=== PATIENT | male | born 1965 | race Caucasian/White ===

== ENCOUNTER 2017-11-28 18:07 | Emergency (ER) | payer OTHER ==
[~2017-11-28] VITALS: Ht 182.9 cm; Wt 115.7 kg
[~2017-11-28 18:07] MED LIST: (None)20 M1 PO; ACEDIPPM PO; ACET500 PO; ALBU90OI INH; ALBU90OI6; ALBU90OI61 INH; ALLO100 PO; AMIT10; AMIT10 PO; AMIT25; AMLO10/10 PO; AMLO5 PO; AMOX500 PO; ASPI325; ASPI325 PO; ASPI81CH PO; ATOR10; ATOR20 PO; ATOR40TA; ATOR40TA PO; AZIT250 PO; AZOR; AZOR PO; Abilify2 MG PO; Augmentin 875-1 EACH PO; Azithromycin250 MG; CARV25; CARV25 PO; CEPH500 PO; CHOL10002; CHOL10002 PO; CITA20; CITA20 PO; CLOP75 PO; CODGUAEL PO; COLC.6 PO; COREG; CRUTCH3 USE; CYCL10 PO; DIAZ5 PO; DOCU100 PO; DOXY100 PO; DULO60; DULO60 PO; ERGO400 PO; ESCI10; ESCI10 PO; ESOM20; FURO20; FURO20 PO; FURO40 PO; GABA100 PO; GABA300 PO; GABA600 PO; HYDACE10B PO; HYDACE5 PO; HYDCHL12.5; HYDMOR2 PO; HYDROCODONE 7.5/325; IBUP800; INDO25 PO; INDO50 PO; INSLI100I SC; ISOMON20 PO; ISOMON30 PO; ISOMON60ER PO; K-Dur20 MEQ PO; LANS30EC; LISHYD2012 PO; LISHYD2025; LISI20 PO; LORA1 PO; LOSA25; LOVA40; LOVA40 PO; Lasix20 MG PO; METAMUCIL660 GM PO; METCAR500 PO; METH10 PO; METH5 PO; METO25ER; METO50ER PO; Micro-K10 MEQ; NAC600 MG PO; NAPR220 PO; NAPR500 PO; NAPR550 PO; NEBI10; NEBI10 PO; NEBI5 PO; NITR.4SL PO; NITR.4SL SL; OLME20; OXYACE5T PO; OXYC30ER PO; OXYC5 PO; PANT40; PENVK500 PO; POTA10T PO; PRAV20 PO; PRAV40 PO; PRED20 PO; PROM25 PO; PROTONIX; Percocet 10-321 EACH PO; QVAR7.3 G1 INH; RAMI5; RANI150 PO; RANO500T PO; RXCYCL10 PO; RXHYDACE PO; RXHYDMOR2 PO; RXNAPNA550 PO; Ranexa1000 MG; SERT50; STOMUL PO; Zithromax250 MG PO; [UNRECOGNIZED DRUG - CODE] PO; [UNRECOGNIZED DRUG - REMARK]
[2017-11-28 19:14] LABS: BASOPHILS ABSOLUTE AUTO 0.04 K/mm3 (0.00-0.23); BASOPHILS PERCENT AUTO 0 % (0-2); EOSINOPHILS PERCENT AUTO 2 % (0-6); Hematocrit 39.8 % (37.0-53.0); Hemoglobin 12.8 g/dL (13.5-17.5); IMMATURE GRAN PERCENT AUTO 1 % (0-1); LYMPHOCYTES ABSOLUTE AUTO 2.21 K/mm3 (0.84-5.20); LYMPHOCYTES PERCENT AUTO 18 % (21-46); MONOCYTES ABSOLUTE AUTO 0.84 K/mm3 (0.16-1.47); MONOCYTES PERCENT AUTO 7 % (4-13); Mean Corpuscular HGB 30.2 pg (26.0-34.0); Mean Corpuscular HGB Conc 32.2 g/dL (31.5-36.5); Mean Corpuscular Volume 94 fL (80-100); Mean Platelet Volume 10.5 fL (9.1-12.4); NEUTROPHILS ABSOLUTE AUTO 8.79 K/mm3 (1.96-9.15); NEUTROPHILS PERCENT AUTO 72 % (41-73); Platelet Count 264 K/mm3 (150-400); RDW Coefficient Variation 15.7 % (11.7-14.2); RDW Standard Deviation 53.8 fL (35.1-46.3); Red Blood Cell Count 4.24 M/mm3 (4.30-5.90); White Blood Cell Count 12.28 K/mm3 (4.00-11.30)
[2017-11-28 19:24] LABS: Alanine Aminotransfer (ALT/SGP 14 U/L (12-78); Albumin, Blood 3.2 g/dL (3.4-5.0); Albumin/Globulin Ratio 0.9 (0.8-1.8); Alk Phos 81 U/L (50-136); Anion Gap 6 mmol/L (6-16); Aspartate Aminotrans (AST/SGOT 8 U/L (12-37); Bilirubin, Total 0.3 mg/dL (0.1-1.0); Blood Urea Nitrogen 20 mg/dL (8-24); Bun/Creatinine Ratio 16.1 (12.0-20.0); CO2, Blood 28 mmol/L (21-32); Calcium, Blood 8.9 mg/dL (8.5-10.1); Chloride, Blood 106 mmol/L (98-108); Creatinine, Blood 1.24 mg/dL (0.60-1.20); Globulin, Blood 3.5 g/dL (2.2-4.0); Glomerular Filtration Rate >60 (60-); Glucose, Blood 86 mg/dL (70-99); Potassium, Blood 4.4 mmol/L (3.5-5.5); Sodium, Blood 140 mmol/L (136-145); Total Protein, Blood 6.7 g/dL (6.4-8.2); Troponin I <0.015 ng/mL (0.000-0.040)
== END 2017-11-28 20:38 | disposition home or self-care (01) ==
LOC: ER 18:07
PROVIDERS: Emergency Medicine
DX: R07.9 Chest pain, unspecified (principal); Z88.8 Allergy status to other drugs, medicaments and biological substances; Z79.899 Other long term (current) drug therapy; Z79.82 Long term (current) use of aspirin; Z79.891 Long term (current) use of opiate analgesic; Z79.2 Long term (current) use of antibiotics; I10 Essential (primary) hypertension; I25.2 Old myocardial infarction
CPT/HCPCS: 36415; 71046; 71100; 80053; 84484; 85025; 93005; 93010; 99283

== ENCOUNTER 2020-11-08 18:04 | Emergency (ER) | payer OTHER ==
[~2020-11-08] VITALS: Ht 182.9 cm; Wt 112.9 kg
[~2020-11-08 18:04] MED LIST changes: +BUPR150ER PO; +CALCIUM CIT 311 EACH PO; +CLON.1 PO; +Isosorbide Mono30 MG PO; +METPRE4DP PO; +MULVITA PO; +OMEP20ER PO; +TAMS.4ER PO; +Vitamin D2000 UNIT PO
[2020-11-08 18:58] LABS: BASOPHILS ABSOLUTE AUTO 0.07 K/mm3 (0.00-0.23); BASOPHILS PERCENT AUTO 1 % (0-2); EOSINOPHILS ABSOLUTE AUTO 0.42 K/mm3 (0.00-0.68); EOSINOPHILS PERCENT AUTO 4 % (0-6); Hematocrit 48.2 % (37.0-53.0); Hemoglobin 15.8 g/dL (13.5-17.5); IMMATURE GRAN ABSOLUTE AUTO 0.04 K/mm3 (0.00-0.10); IMMATURE GRAN PERCENT AUTO 0 % (0-1); LYMPHOCYTES ABSOLUTE AUTO 2.64 K/mm3 (0.84-5.20); LYMPHOCYTES PERCENT AUTO 25 % (21-46); MONOCYTES ABSOLUTE AUTO 0.95 K/mm3 (0.16-1.47); MONOCYTES PERCENT AUTO 9 % (4-13); Mean Corpuscular HGB 29.6 pg (26.0-34.0); Mean Corpuscular HGB Conc 32.8 g/dL (31.5-36.5); Mean Corpuscular Volume 90 fL (80-100); Mean Platelet Volume 10.6 fL (9.1-12.4); NEUTROPHILS ABSOLUTE AUTO 6.63 K/mm3 (1.96-9.15); NEUTROPHILS PERCENT AUTO 62 % (41-73); Platelet Count 260 K/mm3 (150-400); RDW Coefficient Variation 15.2 % (11.7-14.2); RDW Standard Deviation 50.3 fL (35.1-46.3); Red Blood Cell Count 5.33 M/mm3 (4.30-5.90); White Blood Cell Count 10.75 K/mm3 (4.00-11.30)
[2020-11-08 19:12] LABS: Alanine Aminotransfer (ALT/SGP 29 U/L (12-78); Albumin, Blood 3.7 g/dL (3.4-5.0); Albumin/Globulin Ratio 1.1 (0.8-1.8); Alk Phos 89 U/L (50-136); Anion Gap 4 mmol/L (6-16); Aspartate Aminotrans (AST/SGOT 19 U/L (12-37); Bilirubin, Total 0.4 mg/dL (0.1-1.0); Blood Urea Nitrogen 14 mg/dL (8-24); Bun/Creatinine Ratio 11.5 (12.0-20.0); CO2, Blood 28 mmol/L (21-32); Calcium, Blood 8.9 mg/dL (8.5-10.1); Chloride, Blood 106 mmol/L (98-108); Creatinine, Blood 1.22 mg/dL (0.60-1.20); Globulin, Blood 3.3 g/dL (2.2-4.0); Glomerular Filtration Rate >60 (60-); Glucose, Blood 78 mg/dL (70-99); Sodium, Blood 138 mmol/L (136-145); Troponin I <0.015 ng/mL (0.000-0.040)
== END 2020-11-08 22:21 | disposition home or self-care (01) ==
LOC: ER 18:04
PROVIDERS: Emergency Medicine
DX: R07.9 Chest pain, unspecified (principal); R51.9 Headache, unspecified; I10 Essential (primary) hypertension; F17.210 Nicotine dependence, cigarettes, uncomplicated; Z79.899 Other long term (current) drug therapy; Z79.82 Long term (current) use of aspirin
CPT/HCPCS: 36415; 71045; 80053; 83735; 83880; 84484; 85025; 93005; 93010; 99285-25; A9270

== ENCOUNTER → 2021-04-06 | Outpatient (CLI) | payer OTHER | END | disposition home or self-care (01) | LOC: LAB SHORT 10:46 | DX: L57.0 Actinic keratosis (principal) | CPT/HCPCS: 88305 ==

== ENCOUNTER 2021-06-20 13:47 | Emergency (ER) | payer OTHER ==
[~2021-06-20] VITALS: Ht 182.9 cm; Wt 113.4 kg
[2021-06-20] MEDS ORDERED: TOBRADEX ST EYE5 M1 LEFTEYE (14:42)
== END 2021-06-20 15:03 | disposition home or self-care (01) ==
LOC: ER 13:47
DX: S05.02XA Injury of conjunctiva and corneal abrasion without foreign body, left eye, initial encounter (principal); I10 Essential (primary) hypertension; I25.2 Old myocardial infarction; M10.9 Gout, unspecified; Z23 Encounter for immunization; Z88.8 Allergy status to other drugs, medicaments and biological substances; Z79.899 Other long term (current) drug therapy; Z79.82 Long term (current) use of aspirin; Z95.5 Presence of coronary angioplasty implant and graft; Z87.891 Personal history of nicotine dependence; W45.8XXA Other foreign body or object entering through skin, initial encounter
CPT/HCPCS: 90471; 90714; 99282; A9270

== ENCOUNTER → 2021-08-30 | Outpatient (CLI) | payer OTHER ==
[~2021-08-30] MED LIST changes: +TOBRADEX ST EYE5 M1 LEFTEYE
[2021-08-30 13:48] LABS: BASOPHILS ABSOLUTE AUTO 0.04 K/mm3 (0.00-0.23); BASOPHILS PERCENT AUTO 1 % (0-2); EOSINOPHILS ABSOLUTE AUTO 0.41 K/mm3 (0.00-0.68); EOSINOPHILS PERCENT AUTO 6 % (0-6); Hematocrit 47.5 % (37.0-53.0); Hemoglobin 15.9 g/dL (13.5-17.5); IMMATURE GRAN ABSOLUTE AUTO 0.06 K/mm3 (0.00-0.10); IMMATURE GRAN PERCENT AUTO 1 % (0-1); LYMPHOCYTES ABSOLUTE AUTO 1.61 K/mm3 (0.84-5.20); LYMPHOCYTES PERCENT AUTO 22 % (21-46); MONOCYTES ABSOLUTE AUTO 0.77 K/mm3 (0.16-1.47); MONOCYTES PERCENT AUTO 11 % (4-13); Mean Corpuscular HGB 30.8 pg (26.0-34.0); Mean Corpuscular HGB Conc 33.5 g/dL (31.5-36.5); Mean Corpuscular Volume 92 fL (80-100); Mean Platelet Volume 9.6 fL (9.1-12.4); NEUTROPHILS ABSOLUTE AUTO 4.42 K/mm3 (1.96-9.15); NEUTROPHILS PERCENT AUTO 61 % (41-73); Platelet Count 234 K/mm3 (150-400); RDW Coefficient Variation 17.7 % (11.7-14.2); RDW Standard Deviation 58.3 fL (35.1-46.3); Red Blood Cell Count 5.16 M/mm3 (4.30-5.90); White Blood Cell Count 7.31 K/mm3 (4.00-11.30)
[2021-08-30 14:02] LABS: Alanine Aminotransfer (ALT/SGP 26 U/L (12-78); Albumin, Blood 3.6 g/dL (3.4-5.0); Albumin/Globulin Ratio 0.9 (0.8-1.8); Alk Phos 86 U/L (40-126); Anion Gap 10 mmol/L (6-16); Aspartate Aminotrans (AST/SGOT 14 U/L (12-37); Bilirubin, Total 0.4 mg/dL (0.1-1.0); Blood Urea Nitrogen 11 mg/dL (8-24); CO2, Blood 28 mmol/L (21-32); Calcium, Blood 9.3 mg/dL (8.5-10.1); Chloride, Blood 104 mmol/L (98-108); Creatinine, Blood 1.37 mg/dL (0.60-1.20); Globulin, Blood 3.8 g/dL (2.2-4.0); Glomerular Filtration Rate 54 (60-); Glucose, Blood 144 mg/dL (70-99); Potassium, Blood 4.5 mmol/L (3.5-5.5); Sodium, Blood 142 mmol/L (136-145); Total Protein, Blood 7.4 g/dL (6.4-8.2)
[2021-08-30 14:03] LABS: Troponin I <0.017 ng/mL (0.000-0.040)
== END | disposition home or self-care (01) ==
LOC: LAB SHORT 13:44
PROVIDERS: Family Medicine
DX: R42 Dizziness and giddiness (principal)
CPT/HCPCS: 80053; 84484; 85025; 85379

== ENCOUNTER 2022-06-07 22:44 | Inpatient (IN) | payer OTHER ==
[~2022-06-07] VITALS: Ht 182.9 cm; Wt 121.5 kg
[2022-06-07 23:37] LABS: BASOPHILS ABSOLUTE AUTO 0.05 K/mm3 (0.00-0.23); BASOPHILS PERCENT AUTO 0 % (0-2); EOSINOPHILS ABSOLUTE AUTO 0.03 K/mm3 (0.00-0.68); EOSINOPHILS PERCENT AUTO 0 % (0-6); Hematocrit 45.7 % (37.0-53.0); Hemoglobin 15.1 g/dL (13.5-17.5); IMMATURE GRAN ABSOLUTE AUTO 0.16 K/mm3 (0.00-0.10); IMMATURE GRAN PERCENT AUTO 1 % (0-1); LYMPHOCYTES ABSOLUTE AUTO 1.21 K/mm3 (0.84-5.20); LYMPHOCYTES PERCENT AUTO 6 % (21-46); MONOCYTES ABSOLUTE AUTO 2.27 K/mm3 (0.16-1.47); MONOCYTES PERCENT AUTO 11 % (4-13); Mean Corpuscular HGB 29.5 pg (26.0-34.0); Mean Corpuscular Volume 89 fL (80-100); Mean Platelet Volume 10.3 fL (9.1-12.4); NEUTROPHILS ABSOLUTE AUTO 17.75 K/mm3 (1.96-9.15); NEUTROPHILS PERCENT AUTO 83 % (41-73); Platelet Count 249 K/mm3 (150-400); RDW Coefficient Variation 16.1 % (11.7-14.2); RDW Standard Deviation 52.7 fL (35.1-46.3); Red Blood Cell Count 5.12 M/mm3 (4.30-5.90); White Blood Cell Count 21.47 K/mm3 (4.00-11.30)
[2022-06-07 23:54] LABS: Albumin, Blood 3.2 g/dL (3.4-5.0); Albumin/Globulin Ratio 0.9 (0.8-1.8); Bilirubin, Total 0.9 mg/dL (0.1-1.0); Bun/Creatinine Ratio 12.3 (12.0-20.0); Calcium, Blood 8.3 mg/dL (8.5-10.1); Creatinine, Blood 1.79 mg/dL (0.60-1.20); Globulin, Blood 3.7 g/dL (2.2-4.0); Potassium, Blood 4.4 mmol/L (3.5-5.5); Total Protein, Blood 6.9 g/dL (6.4-8.2)
[2022-06-08 01:19] LABS: Source, Urine Clean Catch
[2022-06-08 01:22] LABS: Blood, Urine 5+ (Neg); Glucose Qualitative, Urine Neg (Neg); Ketones, Urine 1+ (Neg); Leukocyte Esterase, Urine 3+ (Neg); Nitrite, Urine Pos (Neg); Protein, Urine 2+ (Neg); Urobilinogen, Urine 1+ (Normal)
[2022-06-08 01:25] LABS: Appearance, Urine Hazy (Clear); Bilirubin, Urine 1+ (Neg); Color, Urine Brown (P-Yellow)
[2022-06-08 01:28] LABS: Bacteria Mod /hpf; Red Blood Cells, Urine 0-2 /hpf (0-2); Squamous Epithelial Cells Rare /hpf (Few); White Blood Cells, Urine 25-50 /hpf (0-5)
[2022-06-08 01:42] LABS: Influenza A, PCR NEGATIVE (NEGATIVE); Influenza B, PCR NEGATIVE (NEGATIVE); Resp Syncytial Virus, PCR NEGATIVE (NEGATIVE); SARS-Cov-2 (COVID-19) PCR, MMC NEGATIVE (NEGATIVE)
[2022-06-08 06:22] LABS: BASOPHILS ABSOLUTE AUTO 0.05 K/mm3 (0.00-0.23); BASOPHILS PERCENT AUTO 0 % (0-2); EOSINOPHILS ABSOLUTE AUTO 0.06 K/mm3 (0.00-0.68); EOSINOPHILS PERCENT AUTO 0 % (0-6); Hemoglobin 14.4 g/dL (13.5-17.5); IMMATURE GRAN ABSOLUTE AUTO 0.14 K/mm3 (0.00-0.10); IMMATURE GRAN PERCENT AUTO 1 % (0-1); LYMPHOCYTES ABSOLUTE AUTO 1.25 K/mm3 (0.84-5.20); LYMPHOCYTES PERCENT AUTO 6 % (21-46); MONOCYTES ABSOLUTE AUTO 2.14 K/mm3 (0.16-1.47); MONOCYTES PERCENT AUTO 10 % (4-13); Mean Corpuscular HGB 29.8 pg (26.0-34.0); Mean Corpuscular HGB Conc 33.5 g/dL (31.5-36.5); Mean Corpuscular Volume 89 fL (80-100); Mean Platelet Volume 10.2 fL (9.1-12.4); NEUTROPHILS ABSOLUTE AUTO 17.27 K/mm3 (1.96-9.15); NEUTROPHILS PERCENT AUTO 83 % (41-73); Platelet Count 246 K/mm3 (150-400); RDW Coefficient Variation 16.2 % (11.7-14.2); RDW Standard Deviation 53.1 fL (35.1-46.3); Red Blood Cell Count 4.83 M/mm3 (4.30-5.90); White Blood Cell Count 20.91 K/mm3 (4.00-11.30)
[2022-06-08 06:56] LABS: Albumin, Blood 2.8 g/dL (3.4-5.0); Albumin/Globulin Ratio 0.8 (0.8-1.8); Bilirubin, Total 0.6 mg/dL (0.1-1.0); Bun/Creatinine Ratio 14.4 (12.0-20.0); Creatinine, Blood 1.53 mg/dL (0.60-1.20); Globulin, Blood 3.7 g/dL (2.2-4.0); Potassium, Blood 4.1 mmol/L (3.5-5.5); Total Protein, Blood 6.5 g/dL (6.4-8.2)
--- NOTE | 2022-06-08 17:41 | NUR ---
SHIFT SUMMARY: PATIENT ARRIVE TO ROOM AROUND 1220 VIA W/C. ORIENT TO ROOM AND CALL SYSTEM. PATIENT A&OX4. PLEASANT AND COOPERATIVE WITH CARE. CALLS APPROPRIATELY AND MAKE KNOWN NEEDS. ADMISSION AND RX RECONCILLATION WAS DONE. PATIENT HAD EPISODE OF CP AROUND 1430'S THAT LAST ABOUT A MINUTE AND A HALF, VITALS TAKEN BP OF 124/78, HR 78 BPM, RR 18, O2 97% ON 1L VIA NC AND TEMP OF 99.[address] WILKERSON REGARDING THIS MATTER. PATIENT HAS BEEN CONTINENT AND USES URINAL INDEPENDENTLY AT BEDSIDE. PATIENT REPORT OF CHRONIC MID/LOWER BACK AND RIGHT PAIN. RECIEVED SCHEDULED METHADONE AND OXYCODONE PER EMAR. PATIENT REPORT SIGN OF RELIEF THE PAIN WAS 9/10 WENT DOWN TO 3/10. PATIENT TOLERATE PO INTAKE. BED IN LOCK, LOWEST POSITION AND CALL LIGHT IN REACH. WILL GIVE REPORT TO ONCOMING JESSY RN.
[2022-06-09 05:03] LABS: BASOPHILS ABSOLUTE AUTO 0.05 K/mm3 (0.00-0.23); BASOPHILS PERCENT AUTO 0 % (0-2); EOSINOPHILS ABSOLUTE AUTO 0.28 K/mm3 (0.00-0.68); EOSINOPHILS PERCENT AUTO 2 % (0-6); Hematocrit 43.5 % (37.0-53.0); Hemoglobin 14.1 g/dL (13.5-17.5); IMMATURE GRAN ABSOLUTE AUTO 0.12 K/mm3 (0.00-0.10); IMMATURE GRAN PERCENT AUTO 1 % (0-1); LYMPHOCYTES ABSOLUTE AUTO 1.27 K/mm3 (0.84-5.20); LYMPHOCYTES PERCENT AUTO 9 % (21-46); MONOCYTES ABSOLUTE AUTO 1.48 K/mm3 (0.16-1.47); MONOCYTES PERCENT AUTO 11 % (4-13); Mean Corpuscular HGB 29.3 pg (26.0-34.0); Mean Corpuscular HGB Conc 32.4 g/dL (31.5-36.5); Mean Corpuscular Volume 90 fL (80-100); Mean Platelet Volume 10.6 fL (9.1-12.4); NEUTROPHILS ABSOLUTE AUTO 10.94 K/mm3 (1.96-9.15); NEUTROPHILS PERCENT AUTO 77 % (41-73); Platelet Count 232 K/mm3 (150-400); RDW Coefficient Variation 15.9 % (11.7-14.2); RDW Standard Deviation 52.2 fL (35.1-46.3); Red Blood Cell Count 4.81 M/mm3 (4.30-5.90); White Blood Cell Count 14.14 K/mm3 (4.00-11.30)
--- NOTE | 2022-06-09 05:18 | NUR ---
SHIFT SUMMARY NO ACUTE CHANGES TO PT CONDITION. PT STARTED ON ANTIBIOTICS YESTERDAY. PT HAS HAD NO COMPLAINTS. CALL LIGHT IS WITHIN PT REACH.
[2022-06-09 05:49] LABS: Albumin, Blood 2.7 g/dL (3.4-5.0); Anion Gap 6 mmol/L (6-16); Blood Urea Nitrogen 14 mg/dL (8-24); Bun/Creatinine Ratio 12.1 (12.0-20.0); CO2, Blood 27 mmol/L (21-32); Calcium, Blood 8.6 mg/dL (8.5-10.1); Chloride, Blood 105 mmol/L (98-108); Creatinine, Blood 1.16 mg/dL (0.60-1.20); Glomerular Filtration Rate 74 (60-); Glucose, Blood 119 mg/dL (70-99); Magnesium, Blood 1.9 mg/dL (1.6-2.4); Phosphorus, Blood 2.6 mg/dL (2.5-4.9); Sodium, Blood 138 mmol/L (136-145)
[2022-06-09] MEDS ORDERED: CEFD300 PO (11:48)
--- NOTE | 2022-06-09 12:24 | NUR ---
DC HOME RECEIVED DC ORDERS. PIV DC'D WITH CATH TIP INTACT, NO REDNESS OR SWELLING NOTED AT SITE. DC INSTRUCTIONS GIVEN TO PT WITH GOOD VERBALIZATION BY PT. NEW MEDICATION FAXED TO [facility] PER PT PREFERENCE.
--- NOTE | 2022-06-09 14:58 | NUR ---
LATE ENTRY/DC HOME 1245: PT HOME VIA W/C TO PRIVATE VEHICLE WITH SPOUSE TO DRIVE HIM HOME.
== END 2022-06-09 12:51 | disposition home or self-care (01) | DRG 690 ==
LOC: ER 22:44 → ERHOLD 06-08 04:04 → MEDS 06-08 12:11
PROVIDERS: Emergency Medicine; Family Medicine; Student in an Organized Health Care Education/Training Program; ADMIT Family Medicine
DX: N39.0 Urinary tract infection, site not specified (principal); F11.20 Opioid dependence, uncomplicated; N17.9 Acute kidney failure, unspecified; M10.9 Gout, unspecified; I71.4 Abdominal aortic aneurysm, without rupture; F17.210 Nicotine dependence, cigarettes, uncomplicated; I12.9 Hypertensive chronic kidney disease with stage 1 through stage 4 chronic kidney disease, or unspecified chronic kidney disease; N18.9 Chronic kidney disease, unspecified; G62.9 Polyneuropathy, unspecified; Z20.822 Contact with and (suspected) exposure to COVID-19; I73.9 Peripheral vascular disease, unspecified; J44.9 Chronic obstructive pulmonary disease, unspecified; G47.33 Obstructive sleep apnea (adult) (pediatric); I25.2 Old myocardial infarction; Z95.5 Presence of coronary angioplasty implant and graft; Z98.890 Other specified postprocedural states; Z99.89 Dependence on other enabling machines and devices; Z88.8 Allergy status to other drugs, medicaments and biological substances; Z79.51 Long term (current) use of inhaled steroids; Z79.899 Other long term (current) drug therapy
CPT/HCPCS: 0241U; 36415; 70450; 71045; 74176; 80053; 80069; 81001; 83605; 83735; 85025; 87040; 87077; 87086; 87186; 94640; 94664; 94762; 96374; 96375; 96376; 99285-25; A9270; J0696; J1644; J3010; J7030; J7120

== ENCOUNTER 2023-11-29 06:50 | Day surgery (SDC) | payer OTHER ==
[~2023-11-29] VITALS: Ht 182.9 cm; Wt 107.0 kg
[2023-11-29] VITALS (8 sets, daily range): BP systolic 146–165; BP diastolic 96–102
[~2023-11-29 06:50] MED LIST changes: +ABILIFY MYCITE2 M2 PO; +CALCIUM CARBON500 M1 PO; +CEFD300 PO; +Cyclobenzaprine5 MG PO; +FLUT1DIS8 INH; +METF500C PO; +SILVADENE20 G8 TOP
[2023-11-29] MEDS ORDERED: Verapamil HCL 2.5 MG/ML 2ML Injection ONE (07:25)
[2023-11-29] MEDS ORDERED: NS 2,000 ML IV ONE (07:25)
[2023-11-29] MEDS ORDERED: Heparin Sodium 1000 Units/ML 10ML MDV ONE ×2 (07:25→08:37)
[2023-11-29 07:40] LABS: BASOPHILS ABSOLUTE AUTO 0.07 K/mm3 (0.00-0.23); BASOPHILS PERCENT AUTO 1 % (0-2); EOSINOPHILS ABSOLUTE AUTO 0.38 K/mm3 (0.00-0.68); EOSINOPHILS PERCENT AUTO 4 % (0-6); Hematocrit 51.2 % (37.0-53.0); Hemoglobin 17.2 g/dL (13.5-17.5); IMMATURE GRAN ABSOLUTE AUTO 0.08 K/mm3 (0.00-0.10); IMMATURE GRAN PERCENT AUTO 1 % (0-1); LYMPHOCYTES ABSOLUTE AUTO 1.38 K/mm3 (0.84-5.20); LYMPHOCYTES PERCENT AUTO 14 % (21-46); MONOCYTES ABSOLUTE AUTO 0.81 K/mm3 (0.16-1.47); MONOCYTES PERCENT AUTO 8 % (4-13); Mean Corpuscular HGB 31.2 pg (26.0-34.0); Mean Corpuscular HGB Conc 33.6 g/dL (31.5-36.5); Mean Corpuscular Volume 93 fL (80-100); Mean Platelet Volume 9.5 fL (9.1-12.4); NEUTROPHILS PERCENT AUTO 73 % (41-73); Platelet Count 278 K/mm3 (150-400); RDW Coefficient Variation 16.8 % (11.7-14.2); Red Blood Cell Count 5.51 M/mm3 (4.30-5.90); White Blood Cell Count 10.02 K/mm3 (4.00-11.30)
[2023-11-29 07:52] LABS: International Normalized Ratio 1.04; Prothrombin Time Results 10.9 Sec (9.7-11.5)
[2023-11-29 08:00] LABS: Bun/Creatinine Ratio 14.4 (12.0-20.0); Calcium, Blood 9.2 mg/dL (8.5-10.1); Creatinine, Blood 1.32 mg/dL (0.60-1.20); Potassium, Blood 4.3 mmol/L (3.5-5.5)
[2023-11-29] MEDS ORDERED: FentaNYL Citrate 50 MCG/ML 2 ML Injection ONE (08:18)
[2023-11-29] MEDS ORDERED: NS 1,000 ML IV ONE (08:19)
[2023-11-29] MEDS ORDERED: Midazolam HCl 1MG / ML 2ML Vial ONE (08:19)
--- NOTE | 2023-11-29 09:18 | NUR ---
PT BACK TO RECOVERY ROOM, FAMILY TO BEDSIDE. PT GIVEN WATER AND COFFEE. PT ALERT AND ORIENTED. VSS. PRELUDE BAND TO R RADIAL WRIST. NO BLEEDING OR HEMATOMA NOTED.
--- NOTE | 2023-11-29 10:00 | NUR ---
Prelude band fully deflated. no bleeding or hematoma noted.
--- NOTE | 2023-11-29 11:08 | NUR ---
PT AND S/O VERBALIZE D/C INSTRUCTIONS. PT DRESSED, NO BLEEDING OR HEMATOMA NOTED TO R WRIST. BAND REMOVED AND DOT CLOTH PLACED. IV D/C CATHETER INTACT. PT WHEELED OUT TO VEHICLE.
== END 2023-11-29 12:10 | disposition home or self-care (01) ==
LOC: MHTC 06:50
PROVIDERS: Internal Medicine Interventional Cardiology
DX: I25.118 Atherosclerotic heart disease of native coronary artery with other forms of angina pectoris (principal); G47.33 Obstructive sleep apnea (adult) (pediatric); J44.9 Chronic obstructive pulmonary disease, unspecified; E78.5 Hyperlipidemia, unspecified; I10 Essential (primary) hypertension; Z88.8 Allergy status to other drugs, medicaments and biological substances; Z79.84 Long term (current) use of oral hypoglycemic drugs; Z79.899 Other long term (current) drug therapy; Z99.89 Dependence on other enabling machines and devices
CPT/HCPCS: 76937; 80048; 85025; 85610; 93458; 99152; C1769; C1887; C1894; J1644; J2250; J3010; J7030; Q9967

== ENCOUNTER 2024-09-18 12:50 | Day surgery (SDC) | payer OTHER ==
[~2024-09-18] VITALS: Ht 182.9 cm; Wt 106.7 kg
[~2024-09-18 12:50] MED LIST changes: +Lactated Ringer's 1,000 ML IV ONE
[2024-09-18] MEDS ORDERED: DEPO-TESTO200 MG/1 M (13:28)
[2024-09-18] MEDS ORDERED: OZEMPIC0.25 MG/02 (13:28)
[2024-09-18] MEDS ORDERED: TRAZ150T57 (13:29)
[2024-09-18] MEDS ORDERED: OXYC10TA19 (13:30)
[2024-09-18] MEDS ORDERED: VILAZODONE HCL20 MG (13:30)
[2024-09-18] MEDS ORDERED: NURTEC ODT75 MG (13:31)
[2024-09-18] MEDS ORDERED: DIVA500EC (13:32)
[2024-09-18] MEDS ORDERED: Lactated Ringer's 1,000 ML IV ONE (14:44)
[2024-09-18] MEDS ORDERED: propofoL 50 ML IV ONE (15:29)
--- NOTE | 2024-09-18 15:29 | NUR ---
09/18/24 1529 Radha De Leon LATE ENTRY: PT AND FAMILY UPDATED ON DELAY IN START TIME DUE TO BEING ANESTHESIA CASE AND THERE WAS AN ANESTHESIA DELAY IN MD FLOYD'S ROOM. BED IN LOW, LOCKED POSITION, CALL LIGHT IN REACH.
[2024-09-18 16:41] VITALS: BP 112/83
--- NOTE | 2024-09-18 17:23 | NUR ---
09/18/24 1723 Becca Barboza PT DENIED ANY PAIN, NO NAUSEA. PT TOOK A WHILE TO WAKE UP AFTER PROCEDURE. PT PLEASANT AND COOPERATIVE WITH CARE PROVIDED. ALL QUESTIONS ANSWERED, AND CONCERNS ADDRESSED. DR. MENDEZ SPOKE TO PT AFTER PROCEDURE. 5 POLYPS WERE REMOVED, DR. MENDEZ STATED THAT THEY DIDN'T LOOK CANCEROUS, BUT THEY WILL BE SENT TO PATHOLOGY FOR FURTHER TESTING. PT ABLE TO TOLERATE APPLE JUICE. PT COLLECTED ALL PERSONAL BELONGINGS, AND ASSISTED VIA WC TO PRIVATE VEHICLE.
== END 2024-09-18 16:59 | disposition home or self-care (01) ==
LOC: ORSCSDS 12:50
PROVIDERS: Specialist
PROC: 0DBH8ZX Excision of Cecum, Via Natural or Artificial Opening Endoscopic, Diagnostic (ICD-10-PCS; principal; 2024-09-18 14:15)
PROC: 0DBK8ZX Excision of Ascending Colon, Via Natural or Artificial Opening Endoscopic, Diagnostic (ICD-10-PCS; principal; 2024-09-18 14:15)
PROC: 0DBL8ZX Excision of Transverse Colon, Via Natural or Artificial Opening Endoscopic, Diagnostic (ICD-10-PCS; principal; 2024-09-18 14:15)
PROC: 0DB68ZX Excision of Stomach, Via Natural or Artificial Opening Endoscopic, Diagnostic (ICD-10-PCS; 2024-09-18 14:15)
PROC: 0D758ZZ Dilation of Esophagus, Via Natural or Artificial Opening Endoscopic (ICD-10-PCS; 2024-09-18 14:15)
PROC: 0DB98ZX Excision of Duodenum, Via Natural or Artificial Opening Endoscopic, Diagnostic (ICD-10-PCS; 2024-09-18 14:15)
PROC: 0DB58ZX Excision of Esophagus, Via Natural or Artificial Opening Endoscopic, Diagnostic (ICD-10-PCS; 2024-09-18 14:15)
DX: R19.4 Change in bowel habit (principal); K62.5 Hemorrhage of anus and rectum; Z86.0100 Personal history of colon polyps, unspecified; Z80.0 Family history of malignant neoplasm of digestive organs; D12.2 Benign neoplasm of ascending colon; D12.0 Benign neoplasm of cecum; D12.3 Benign neoplasm of transverse colon; D12.5 Benign neoplasm of sigmoid colon; K44.9 Diaphragmatic hernia without obstruction or gangrene; K64.8 Other hemorrhoids; K57.30 Diverticulosis of large intestine without perforation or abscess without bleeding; G47.33 Obstructive sleep apnea (adult) (pediatric); K21.00 Gastro-esophageal reflux disease with esophagitis, without bleeding; E78.5 Hyperlipidemia, unspecified; Q40.2 Other specified congenital malformations of stomach; E11.9 Type 2 diabetes mellitus without complications; I10 Essential (primary) hypertension; I25.10 Atherosclerotic heart disease of native coronary artery without angina pectoris; E66.9 Obesity, unspecified; Z68.31 Body mass index [BMI] 31.0-31.9, adult; F17.210 Nicotine dependence, cigarettes, uncomplicated; Z79.84 Long term (current) use of oral hypoglycemic drugs; Z79.85 Long-term (current) use of injectable non-insulin antidiabetic drugs; Z79.82 Long term (current) use of aspirin; Z79.899 Other long term (current) drug therapy
CPT/HCPCS: 82947; 88305; 88342; C1769; J2704; J7120

== ENCOUNTER 2025-10-02 07:03 | Day surgery (SDC) | payer OTHER ==
[~2025-10-02] VITALS: Ht 182.9 cm; Wt 236.0 kg
[2025-10-02] VITALS (10 sets, daily range): BP systolic 120–144; BP diastolic 86–101
[~2025-10-02 07:03] MED LIST changes: +DEPO-TESTO200 MG/1 M; +DIVA500EC; -Lactated Ringer's 1,000 ML IV ONE; +NURTEC ODT75 MG; +OXYC10TA19; +OZEMPIC0.25 MG/02; +TRAZ150T57; +VILAZODONE HCL20 MG
[2025-10-02] MEDS ORDERED: Heparin Sodium 1000 Units/ML 10ML MDV ONE ×2 (07:33→08:34)
[2025-10-02] MEDS ORDERED: NS 500 ML IV ONE (07:33)
[2025-10-02] MEDS ORDERED: NS 1,000 ML IV ONE ×2 (07:33→08:34)
[2025-10-02] MEDS ORDERED: Nitroglycerin 2 MG/20 ML BTL ONE (07:34)
[2025-10-02] MEDS ORDERED: TRAZ150T57 PO (07:39)
[2025-10-02] MEDS ORDERED: TESTOSTERONE200 MG IL (07:39)
[2025-10-02] MEDS ORDERED: OZEMPIC0.25 MG/02 SQ (07:40)
[2025-10-02] MEDS ORDERED: NURTEC ODT75 MG PO (07:40)
[2025-10-02] MEDS ORDERED: METF500 PO (07:41)
[2025-10-02] MEDS ORDERED: DEPAKOTE ER500 MG PO (07:43)
[2025-10-02] MEDS ORDERED: Midazolam HCl 1MG / ML 2ML Vial ONE (08:34)
[2025-10-02] MEDS ORDERED: FentaNYL Citrate 50 MCG/ML 2 ML Injection ONE (08:34)
[2025-10-02] MEDS ORDERED: Verapamil HCL 2.5 MG/ML 2ML Injection ONE (09:06)
--- NOTE | 2025-10-02 10:40 | NUR ---
PATIENT ARRIVED TO RECOVERY ROOM WITH HOB FLAT, VSS WITH 2 L 02. BILATERAL GROIN ACCESS C/D/I SOFT/NONTENDER, NO EVIDENCE OF BLEEDING. PATIENT COMPLAINING OF SOME RIGHT KNEE CHRONIC PAIN, WILL CONTINUE TO MONITOR.
--- NOTE | 2025-10-02 11:52 | NUR ---
PATIENT SITTING UPRIGHT IN BED TOLERATING PO INTAKE WELL. VSS ON RA. BILATERAL GROINS C/D/I. PATIENT COMPLAINING OF SOME R KNEE CHRONIC PAIN.
--- NOTE | 2025-10-02 12:51 | NUR ---
PATIENTS NEW PRESCRIPTION CALLED INTO [facility]
--- NOTE | 2025-10-02 13:00 | NUR ---
PATIENT AMBULATING TO RESTROOM WITHOUT DIFFICULTY. BILATERAL GROIN SITE C/D/I SOFT/NONTENDER, NO EVIDENCE OF BLEEDING. VSS ON RA. DISCHARGE INSTRUCTIONS AND NEW MEDICATION REVIEWED. PATIENT TOLERATING PO INTAKE WELL.
--- NOTE | 2025-10-02 13:15 | NUR ---
PATIENT DISHCARGED HOME AT THIS TIME. PIV REMOVED WITHOUT DIFFICULTY, CATHETER INTACT. BILATERAL GROIN SITE C/D/I SOFT/NONTENDER. PATIENT WHEELED TO HOSPITAL ENTRANCE AND FAMILY ABLE TO PROVIDE TRANSPORTATION HOME.
== END 2025-10-02 13:15 | disposition home or self-care (01) ==
LOC: MHTC 07:03
DX: E11.51 Type 2 diabetes mellitus with diabetic peripheral angiopathy without gangrene (principal); I70.212 Atherosclerosis of native arteries of extremities with intermittent claudication, left leg; I87.2 Venous insufficiency (chronic) (peripheral); I89.0 Lymphedema, not elsewhere classified; E78.5 Hyperlipidemia, unspecified; I10 Essential (primary) hypertension; I25.10 Atherosclerotic heart disease of native coronary artery without angina pectoris; G47.31 Primary central sleep apnea; J44.9 Chronic obstructive pulmonary disease, unspecified; K21.9 Gastro-esophageal reflux disease without esophagitis; M10.9 Gout, unspecified; E11.42 Type 2 diabetes mellitus with diabetic polyneuropathy; Z87.891 Personal history of nicotine dependence; Z79.82 Long term (current) use of aspirin; Z79.84 Long term (current) use of oral hypoglycemic drugs; Z79.899 Other long term (current) drug therapy; Z88.8 Allergy status to other drugs, medicaments and biological substances; Z98.890 Other specified postprocedural states
CPT/HCPCS: 36140; 36200; 75625; 75716; 75774; 76937; 85347; 99152; 99153; C1725; C1760; C1769; C1887; C1894; C9764; C9772; J1644; J2250; J3010; J7030; J7050; Q9967